=== PATIENT | male | born 1980 | race Two or more races ===

== ENCOUNTER 2017-04-01 10:48 | Outpatient (CLI) | payer OTHER | END 2017-04-01 17:06 | disposition home or self-care (01) | LOC: SONOGRAMA 10:48 | DX: D21.6 Benign neoplasm of connective and other soft tissue of trunk, unspecified (principal) ==

== ENCOUNTER 2017-05-16 04:25 | Day surgery (SDC) | payer OTHER ==
[~2017-05-16 04:25] MED LIST: LIPITOR20 MG
== END 2017-05-16 09:35 | disposition home or self-care (01) ==
LOC: CIR.AMB 04:25
DX: D17.1 Benign lipomatous neoplasm of skin and subcutaneous tissue of trunk (principal)

== ENCOUNTER 2019-11-03 06:39 | Emergency (ER) | payer OTHER ==
[~2019-11-03] VITALS: Ht 160 cm; Wt 85.7 kg
[2019-11-03] MEDS ORDERED: KETO10TA2 PO (11:12)
[2019-11-03] MEDS ORDERED: ORPHENADRINE C100 MG PO (11:12)
== END 2019-11-03 11:21 | disposition home or self-care (01) ==
LOC: ER 06:39
DX: S60.222A Contusion of left hand, initial encounter (principal); S60.221A Contusion of right hand, initial encounter; S40.022A Contusion of left upper arm, initial encounter; S40.021A Contusion of right upper arm, initial encounter; S50.02XA Contusion of left elbow, initial encounter; S50.01XA Contusion of right elbow, initial encounter; S80.02XA Contusion of left knee, initial encounter; S80.01XA Contusion of right knee, initial encounter; M54.5 Low back pain; M54.2 Cervicalgia; W17.89XA Other fall from one level to another, initial encounter; Y93.89 Activity, other specified; Y92.018 Other place in single-family (private) house as the place of occurrence of the external cause; Y99.8 Other external cause status

== ENCOUNTER 2019-11-09 11:54 | Emergency (ER) | payer OTHER ==
[~2019-11-09] VITALS: Ht 160 cm; Wt 85.7 kg
[~2019-11-09 11:54] MED LIST changes: +KETO10TA2 PO; +ORPHENADRINE C100 MG PO
[2019-11-09] MEDS ORDERED: KETO10TA2 PO (15:00)
[2019-11-09] MEDS ORDERED: SKELAXIN800 MG PO (15:00)
[2019-11-09] MEDS ORDERED: VOLTAREN100 GM TOP (15:00)
== END 2019-11-09 15:20 ==
LOC: ER 11:54
DX: M79.604 Pain in right leg (principal)

== ENCOUNTER 2021-10-04 05:00 | Emergency (ER) | payer OTHER ==
[~2021-10-04] VITALS: Ht 157.5 cm; Wt 77.1 kg
[~2021-10-04 05:00] MED LIST changes: +SKELAXIN800 MG PO; +VOLTAREN100 GM TOP
== END 2021-10-04 09:54 | disposition home or self-care (01) ==
LOC: ER 05:00
DX: M54.50 Low back pain, unspecified (principal)

== ENCOUNTER 2023-10-29 11:48 | Emergency (ER) | payer OTHER ==
[~2023-10-29] VITALS: Ht 160 cm; Wt 84.8 kg
[2023-10-29] MEDS ORDERED: KETOROLAC TROMETHAMINE 60 MG VIAL IM STA (14:08)
[2023-10-29] MEDS ORDERED: KETOROLAC TROMETHAMINE 60 MG VIAL IM ONE (14:12)
== END 2023-10-29 16:14 | disposition home or self-care (01) ==
LOC: ER 11:50
DX: S92.501A Displaced unspecified fracture of right lesser toe(s), initial encounter for closed fracture (principal); X58.XXXA Exposure to other specified factors, initial encounter; Y93.89 Activity, other specified; Y92.89 Other specified places as the place of occurrence of the external cause; Y99.8 Other external cause status